=== PATIENT | male | born 1995 | race Caucasian/White ===

== ENCOUNTER 2019-09-14 16:14 | Emergency (ER) | payer OTHER ==
[2019-09-14 16:26] VITALS: TEMP 97.9; BMI 26.2
[2019-09-14] MEDS ORDERED: SODIUM CHLORIDE 0.9% 500 ML INFUS.BAG IV ONE (16:57)
[2019-09-14] MEDS ORDERED: ONDANSETRON 4 MG/2 ML VIAL IVPUSH ONE (16:57)
[2019-09-14] MEDS ORDERED: FAMOTIDINE 20 MG/50 ML IVPB 20 MG/50 ML MG IVPB ONE ×2 (16:58→17:06)
--- NOTE | 2019-09-14 17:08 | PDOC ---
Attending Attestation - Resident Resident Name: Suhas Beach - ED Attending Attestation I have performed the following: I have examined & evaluated the patient, The case was reviewed & discussed with the resident, I agree w/resident's findings & plan, Exceptions are as noted - HPI HPI: 09/14/19 17:08 23-year-old male presents to 3 days of nausea diarrhea and vomiting x6 episodes over the 3 days. - Physicial Exam PE: 09/14/19 18:23 wnwd 23 yo male with N,V,D head ncat neck supple'lungs cta b/l cvs [id number] abd no rebound, no guarding extremities no edema skin warm and dry neuro axox3 psych appropriate - Medical Decision Making 09/14/19 17:08 wnwd 23 yo male w N,V,D and suprapubic pain Denies etoh use and epgstric pain 09/14/19 18:24 bending abd pain,labs unremarkable imp gastroenteritis plan d/c home
--- NOTE | 2019-09-14 17:09 | PDOC ---
History of Present Illness - General Chief Complaint: Nausea/Vomiting Stated Complaint: Nausea/Vomiting Time Seen by Provider: 09/14/19 17:07 - History of Present Illness Initial Comments: 09/14/19 17:43 23 yo M no PMH presenting with suprapubic abdominal pain. Patient symptoms began 3 days ago, initially N/V/D, then chills, then suprapubic abdominal pain yesterday, waxing and waning from 3/10 to 8/10, ongoing, unable to keep down food or liquids. Improved slightly with Nexium and heating pad but persistent. Endorses chills. Patient reports being apprehended three days ago and having to eat an old bologna sandwich. Denies CP, SOB, constipation, recent travel, sick contacts. Past History - Past Medical History Allergies/Adverse Reactions: Allergies Allergy/AdvReac Type Severity Reaction Status Date / Time amoxicillin [Amoxicillin] Allergy Hives Verified 09/14/19 16:26 Home Medications: Ambulatory Orders Ondansetron [Zofran *Odt*] 4 mg GT BID PRN #6 tab.rapdis 09/14/19 COPD: No - Immunization History Td Vaccination: Yes - Psycho Social/Smoking Cessation Hx Smoking Status: No Smoking History: Current some day smoker Number of Cigarettes Smoked Daily: 3 Information on smoking cessation initiated: No *Physical Exam - Vital Signs Last Vital Signs Temp Pulse Resp BP Pulse Ox 97.9 F 79 16 98/65 98 09/14/19 16:22 09/14/19 16:22 09/14/19 16:22 09/14/19 16:22 09/14/19 16:22 ED Treatment Course - LABORATORY CBC & Chemistry Diagram: 09/14/19 17:00 09/14/19 17:00 Medical Decision Making - Medical Decision Making 09/14/19 18:12 Concern for viral gastroenteritis, other possibilities of pancreatitis v UTI v appendicitis. - CBC, CMP, lipase - UA - 1L NS, Zofran, famotidine CBC, CMP unconcerning. 09/14/19 18:43 Patient able to keep down water, will PO challenge with crackers. 09/14/19 18:53 Patient keeping down food and water without issue. Will dc home. Discharge - Discharge Information Problems reviewed: Yes Clinical Impression/Diagnosis: Nausea and vomiting, Diarrhea Condition: Improved Disposition: HOME - Admission No - Additional Discharge Information Prescriptions: Ondansetron [Zofran *Odt*] 4 mg GT BID PRN #6 tab.rapdis PRN Reason: Nausea - Follow up/Referral Referrals: Lambert Ni MD [Primary Care Provider] - - Patient Discharge Instructions Patient Printed Discharge Instructions: DI for Nausea -- Adult, DI for Vomiting -- Adult, DI for Viral Gastroenteritis -- Adult Additional Instructions: You were seen with nausea, vomiting, and diarrhea. This is most concerning for a viral gastroenteritis. Your labs were unconcerning, and your symptoms improved with medication. Please take ibuprofen/Tylenol as needed for pain. We also sent some Zofran to your pharmacy. This is a nausea medication, only use it if needed. Follow up with your primary care doctor within one week. Return to the ED if you developing worsening symptoms. - Post Discharge Activity
[2019-09-14 17:42] LABS: BASO % 0.4 % (0-2.0); EOS % 0.3 % (0-4.5); HEMATOCRIT 40.8 % (35.4-49); HEMOGLOBIN 13.6 GM/dL (11.7-16.9); LYMPH % 26.3 % (8-40); MCH 26.6 pg (25.7-33.7); MCHC 33.3 g/dl (32.0-35.9); MEAN CELL VOLUME 80.1 fl (80-96); MEAN PLT VOLUME 8.4 fl (7.5-11.1); PLATELET COUNT 174 K/MM3 (134-434); RBC 5.09 M/mm3 (4.00-5.60); RDW 13.6 % (11.9-15.9); WHITE BLOOD COUNT 5.3 K/mm3 (4.0-10.0)
[2019-09-14 18:00] LABS: ALBUMIN 3.7 g/dl (3.4-5.0); BILIRUBIN,TOTAL 0.3 mg/dL (0.2-1); BLOOD UREA NITROGEN 9.9 mg/dL (7-18); CALCIUM 8.8 mg/dL (8.5-10.1); CREATININE 0.9 mg/dL (0.55-1.3); POTASSIUM 3.9 mmol/L (3.5-5.1); TOT PROT 6.7 g/dl (6.4-8.2)
[2019-09-14 18:39] LABS: URINE APPEARANCE CLEAR; URINE BILIRUBIN NEGATIVE (NEGATIVE); URINE COLOR YELLOW; URINE GLUCOSE (UA) NEGATIVE (NEGATIVE); URINE KETONE 1+ (NEGATIVE); URINE LEUK ESTERASE NEGATIVE (NEGATIVE); URINE NITRITE NEGATIVE (NEGATIVE); URINE PROTEIN NEGATIVE (NEGATIVE)
[2019-09-14] MEDS ORDERED: ACETAMINOPHEN 1000 MG/100 ML VIAL (NON FORMULARY) IVPB ONE (18:46)
[2019-09-14] MEDS ORDERED: ACETAMINOPHEN INJECTION 100 ML IVPB ONE (18:48)
[2019-09-14 19:10] VITALS: BP 123/64; PULSE 81
== END 2019-09-14 19:10 | disposition home or self-care (01) ==
LOC: JER 16:14
PROC: 3E033GC Introduction of Other Therapeutic Substance into Peripheral Vein, Percutaneous Approach (ICD-10-PCS; principal; 2019-09-14)
PROC: 3E033GC Introduction of Other Therapeutic Substance into Peripheral Vein, Percutaneous Approach (ICD-10-PCS; 2019-09-14)
PROC: 3E033NZ Introduction of Analgesics, Hypnotics, Sedatives into Peripheral Vein, Percutaneous Approach (ICD-10-PCS; 2019-09-14)
DX: K52.9 Noninfective gastroenteritis and colitis, unspecified (principal); Z72.0 Tobacco use; Z88.0 Allergy status to penicillin
CPT/HCPCS: 36415; 80053; 81003; 83690; 85025; 87086; 96365; 96375; 99283-25; J0131